=== PATIENT | female | born 1985 | race Caucasian/White ===

== ENCOUNTER 2021-04-14 15:13 | Emergency (ER) | payer MEDICAID ==
[~2021-04-14] VITALS: Ht 175.3 cm; Wt 122.7 kg
[2021-04-14 16:25] LABS: BASOPHILS # (AUTO) 0.1 X10'3 (0-0.2); BASOPHILS % (AUTO) 0.7 % (0-1); EOSINOPHILS # (AUTO) 0.1 X10'3 (0-0.9); EOSINOPHILS % (AUTO) 1.4 % (0-6); HEMATOCRIT 41.9 % (35.0-45.0); HEMOGLOBIN 14.1 g/dl (12.0-16.0); LYMPHOCYTES # (AUTO) 1.8 X10'3 (1.1-4.8); LYMPHOCYTES % (AUTO) 21.3 % (21-51); MEAN CORPUSCULAR HEMOGLOBIN 29.4 PG (27.0-31.0); MEAN CORPUSCULAR HGB CONC 33.7 g/dL (33.0-36.5); MEAN CORPUSCULAR VOLUME 87.3 FL (78-98); MEAN PLATELET VOLUME 7.1 FL (7.4-10.4); MONOCYTES # (AUTO) 0.4 X10'3 (0-0.9); MONOCYTES % (AUTO) 4.8 % (2-12); NEUTROPHILS # (AUTO) 5.9 X10'3 (1.8-7.7); NEUTROPHILS % (AUTO) 71.8 % (42-75); PLATELET COUNT 351 X10'3 (140-440); RED BLOOD COUNT 4.81 X10'6 (4.20-5.60); RED CELL DISTRIBUTION WIDTH 16.4 % (11.5-14.5); WHITE BLOOD COUNT 8.3 X10'3 (4.5-11.0)
[2021-04-14] MEDS ORDERED: ketorolac tromethamine 15mg/ml inj. IM ONE (16:30)
[2021-04-14 16:58] LABS: GLUCOSE 96 MG/DL (70-104); POTASSIUM 4.1 MMOL/L (3.5-5.1); SODIUM 142 MMOL/L (135-145)
[2021-04-14 16:59] LABS: ALANINE AMINOTRANSFERASE 17 U/L (12-78); ALBUMIN 3.8 G/DL (3.4-5.0); ALKALINE PHOSPHATASE 80 IU/L (46-116); ANION GAP 9 (8-16); ASPARTATE AMINO TRANSFERASE 15 U/L (10-37); BILIRUBIN,TOTAL 0.5 MG/DL (0.1-1.0); BLOOD UREA NITROGEN 9 MG/DL (7-18); BUN/CREATININE RATIO 8.8 (6.6-38.0); CALCIUM 9.2 MG/DL (8.5-10.1); CHLORIDE 106 MMOL/L (99-107); CREATININE 1.02 MG/DL (0.40-0.90); TOTAL CARBON DIOXIDE 27.3 MMOL/L (24-32); TOTAL PROTEIN 7.7 G/DL (6.4-8.2); eGFR 62 ML/MIN
[2021-04-14 17:00] LABS: ETHANOL < 0.010 GM/DL (0.0-0.010)
[2021-04-14 17:34] LABS: URINE HCG NEGATIVE (NEG)
[2021-04-14 17:38] LABS: CLARITY,URINE CLEAR (Clear); COLOR,URINE YELLOW (Yellow); GLUCOSE, URINE NEGATIVE (Neg); KETONES,URINE NEGATIVE (Neg); LEUKOCYTE ESTERASE ,URINE NEGATIVE (Neg); NITRITES, URINE NEGATIVE (Neg); OCCULT BLOOD,URINE NEGATIVE (Neg); PROTEIN,URINE NEGATIVE (Neg); UROBILINOGEN,URINE 0.2 E.U/dL (0.2-1.0)
[2021-04-14 17:40] LABS: URINE AMPHETAMINE SCREEN NEGATIVE (Neg); URINE BARBITUATE SCREEN NEGATIVE (Neg); URINE BENZODIAZEPINES SCREEN NEGATIVE (Neg); URINE CANNABINOID SCREEN POSITIVE (Neg); URINE COCAINE SCREEN NEGATIVE (Neg); URINE METHADONE SCREEN NEGATIVE (Neg); URINE OPIATE SCREEN NEGATIVE (Neg); URINE PHENCYCLIDINE SCREEN NEGATIVE (Neg)
[2021-04-14 17:43] LABS: UA COLLECTION TYPE CLN CATCH MIDSTREAM
--- NOTE | 2021-04-14 18:35 | NUR ---
SPOKE WITH PT, SHE REPORTS NO SI FEELINGS AT THIS TIME, BUT THAT SHE WANTS TO BE OUT OF THIS DEPRESSED STATE. SHE STATES THAT SHE KNOWS SHE NEEDS HELP AND DOES NOT HAVE SI IDEATIONS AT THIS TIME. SHE IS HOPING FOR PLACEMENT AT FACILITY TODAY AND TO WORK WITH A COUNSELOR. MEAL TRAY PROVIDED, PT. SITTING UP EATING.
[2021-04-14] MEDS ORDERED: QUET-1 PO (19:07)
[2021-04-14] MEDS ORDERED: LAMO100T2 PO (19:07)
[2021-04-14] MEDS ORDERED: ESOM20CA PO (19:07)
[2021-04-14] MEDS ORDERED: CLON-527 PO (19:07)
[2021-04-14] MEDS ORDERED: DULO-31 PO (19:07)
--- NOTE | 2021-04-14 20:32 | NUR ---
PT SLEEPING ON BACK, IN NO APPARENT DISTRESS, RR EVEN, NON-LABORED, IN LINE OF SIGHT OF DOCTORS STATION.
[2021-04-14 22:00] VITALS: BP 137/79
--- NOTE | 2021-04-15 | NUR ---
PT SLEEPING PRONE, RR EVEN, NON-LABORED, APPEARS TO BE IN NO DISTRESS.
--- NOTE | 2021-04-15 02:56 | NUR ---
Pt moved to lang by charge, awake, alert, requesting pain medication for her anxiety and nexium for her gerd. Her does was missed yesterday. Will notify
[2021-04-15] MEDS ORDERED: hydrOXYzine 25 MG tablet PO ONE (03:00)
[2021-04-15] MEDS ORDERED: pantoprazole 40mg Tablet.DR PO STA (03:02)
--- NOTE | 2021-04-15 04:00 | NUR ---
Pt woke from sleep, denies any distress, medication as noted.
--- NOTE | 2021-04-15 04:20 | NUR ---
Assumed care of patient- she is laying on her side, resting with her eyes closed. Provided with water per request. She has been cooperative.
[2021-04-15] MEDS ORDERED: clonazePAM 0.5mg tablet PO PRN (06:10)
[2021-04-15] MEDS ORDERED: pantoprazole 40mg Tablet.DR PO SCH (07:30)
[2021-04-15] MEDS ORDERED: lamoTRIgine 100mg tablet PO SCH (08:00)
[2021-04-15] MEDS ORDERED: duloxetine 30mg CAPSULE.DR PO SCH (08:00)
--- NOTE | 2021-04-15 10:00 | NUR ---
Pt brought back to room 22, pt orientated to environment.
--- NOTE | 2021-04-15 11:31 | NUR ---
Pt being seen by [facility] at bedside.
--- NOTE | 2021-04-15 11:50 | NUR ---
Pt taken off [id number] per Lior of [facility]
[2021-04-15] MEDS ORDERED: QUEtiapine 25mg tablet PO SCH (21:00)
== END 2021-04-15 12:37 | disposition home or self-care (01) ==
LOC: ER 15:14
DX: R45.851 Suicidal ideations (principal); Z20.822 Contact with and (suspected) exposure to COVID-19; R10.84 Generalized abdominal pain; F31.9 Bipolar disorder, unspecified; Z79.899 Other long term (current) drug therapy
CPT/HCPCS: 36415; 71045; 80053; 80305; 80320; 81003; 81025; 84443; 85025; 87635; 96372; 99285; C9803; J1885; Q0177

== ENCOUNTER 2023-06-01 15:16 | Emergency (ER) | payer MEDICAID ==
[~2023-06-01] VITALS: Ht 175.3 cm; Wt 110.0 kg
[~2023-06-01 15:16] MED LIST: CLON-527 PO; DULO-31 PO; ESOM20CA PO; LAMO100T2 PO; QUET-1 PO
[2023-06-01 16:06] LABS: BASOPHILS % (AUTO) 0.4 % (0-1); EOSINOPHILS % (AUTO) 0 % (0-6); HEMATOCRIT 42.9 % (35.0-45.0); HEMOGLOBIN 14.4 g/dl (12.0-16.0); LYMPHOCYTES # (AUTO) 1.3 X10'3 (1.1-4.8); MEAN CORPUSCULAR HEMOGLOBIN 29.1 PG (27.0-31.0); MEAN CORPUSCULAR HGB CONC 33.5 g/dL (33.0-36.5); MEAN CORPUSCULAR VOLUME 86.7 FL (78-98); MEAN PLATELET VOLUME 7.1 FL (7.4-10.4); MONOCYTES # (AUTO) 0.3 X10'3 (0-0.9); MONOCYTES % (AUTO) 3.2 % (2-12); NEUTROPHILS # (AUTO) 6.4 X10'3 (1.8-7.7); NEUTROPHILS % (AUTO) 80.4 % (42-75); PLATELET COUNT 435 X10'3 (140-440); RED BLOOD COUNT 4.95 X10'6 (4.20-5.60); RED CELL DISTRIBUTION WIDTH 13.6 % (11.5-14.5)
[2023-06-01 16:23] LABS: ALANINE AMINOTRANSFERASE 18 U/L (12-78); ALBUMIN 4.2 G/DL (3.4-5.0); ALBUMIN/GLOBULIN RATIO 1.2 (1.1-1.5); ALKALINE PHOSPHATASE 82 IU/L (46-116); AMYLASE 48 U/L (25-115); ANION GAP 14 (8-16); ASPARTATE AMINO TRANSFERASE 16 U/L (10-37); BILIRUBIN,TOTAL 0.8 MG/DL (0.1-1.0); BLOOD UREA NITROGEN 13 MG/DL (7-18); BUN/CREATININE RATIO 12.5 (10.0-20.0); CALCIUM 10.1 MG/DL (8.5-10.1); CHLORIDE 103 MMOL/L (99-107); CREATININE 1.04 MG/DL (0.40-0.90); GLUCOSE 149 MG/DL (70-104); LIPASE 112 U/L (73-393); POTASSIUM 3.7 MMOL/L (3.5-5.1); SODIUM 137 MMOL/L (135-145); TOTAL CARBON DIOXIDE 20.4 MMOL/L (24-32); TOTAL PROTEIN 7.8 G/DL (6.4-8.2); eCRCL 79 ML/MIN; eGFR 60 ML/MIN
[2023-06-01] MEDS ORDERED: ondansetron/PF 4mg/2ml inj IV STA (16:58)
[2023-06-01] MEDS ORDERED: morphine 4 MG/ML inj SYRINge IV STA (16:58)
[2023-06-01 17:27] LABS: URINE HCG NEGATIVE (NEG)
[2023-06-01] MEDS ORDERED: HYDROmorphone 1 mg/ml syringe IV ONE (17:35)
[2023-06-01 17:42] LABS: BILIRUBIN,URINE SMALL (Neg); CLARITY,URINE SLIGHTLY CLOUDY (Clear); COLOR,URINE YELLOW (Yellow); GLUCOSE, URINE NEGATIVE (Neg); KETONES,URINE >=80 mg/dl (Neg); LEUKOCYTE ESTERASE ,URINE NEGATIVE (Neg); NITRITES, URINE NEGATIVE (Neg); OCCULT BLOOD,URINE NEGATIVE (Neg); PROTEIN,URINE 30 mg/dl (Neg); UROBILINOGEN,URINE 0.2 E.U/dL (0.2-1.0)
[2023-06-01 17:44] LABS: UA COLLECTION TYPE CLN CATCH MIDSTREAM
[2023-06-01 17:45] LABS: MUCUS STRANDS MODERATE /LPF (Neg); SQUAMOUS EPITHELIAL CELL,UR MODERATE /LPF (FEW)
[2023-06-01 17:46] LABS: BACTERIA,URINE FEW /HPF (Neg); RBC,URINE 0-2 /HPF (0-2); WBC,URINE 0-4 /HPF (0-4)
[2023-06-01] MEDS ORDERED: iohexol 300mg/ml 100ml inj. ONE (17:55)
[2023-06-01 19:00] VITALS: BP 116/63; PULSE 55; RESP 18; TEMP 98.6; O2SAT 99
== END 2023-06-01 20:22 | disposition home or self-care (01) ==
LOC: ER 15:16
DX: R10.30 Lower abdominal pain, unspecified (principal); R19.7 Diarrhea, unspecified
CPT/HCPCS: 36415; 74177; 80053; 81001; 81025; 82150; 83690; 85025; 96374; 96375; 99285; J1170; J2270; J2405; J3490; Q9967

== ENCOUNTER 2024-03-02 10:14 | Outpatient (CLI) | payer MEDICAID | END 2024-03-02 23:59 | disposition home or self-care (01) | LOC: RAD 10:14 | PROVIDERS: ATTEND Student in an Organized Health Care Education/Training Program | DX: M25.772 Osteophyte, left ankle (principal); M25.771 Osteophyte, right ankle; M25.571 Pain in right ankle and joints of right foot | CPT/HCPCS: 73610 ==